=== PATIENT | female | born 1995 | race Hispanic/Latino ===

== ENCOUNTER 2017-12-18 13:58 | Emergency (ER) | payer OTHER ==
[~2017-12-18] VITALS: Ht 154.9 cm; Wt 73.0 kg
[~2017-12-18 13:58] MED LIST: SKELAXIN800 M1 PO
[2017-12-18 14:04] VITALS: BP 100/63
[2017-12-18] MEDS ORDERED: LIDOCAINE HCL V15 ML PO (14:19)
[2017-12-18] MEDS ORDERED: PREDNISONE50 M1 PO (14:19)
--- NOTE | 2017-12-18 14:19 | ED THROAT/DENTAL COMPLAINT ---
History of Present Illness General Chief Complaint: Sore Throat, Dental Pain Stated Complaint: DX'D WITH TONSILLITIS THURSDAY, GETTING WORSE Source: patient Exam Limitations: no limitations Vital Signs & Intake/Output Vital Signs & Intake/Output Vital Signs Date Time Temp Pulse Resp B/P B/P Pulse O2 O2 Flow FiO2 Mean Ox Delivery Rate 12/18 1416 Room Air 12/18 1404 98.4 68 20 100/63 98 Room Air Allergies Coded Allergies: No Known Allergies (02/08/16) Reconcile Medications Ibuprofen 600 MG TABLET 1 TAB PO Q6-PRN PRN PAIN (Reported) Lidocaine HCl (Lidocaine HCl Viscous) 2 % SOLUTION 15 ML PO 4 TIMES/DAY THROAT PAIN MAGIC MOUTH WASH 9MAALOX, LIDOCAINE, BENADRYL EQUAL PARTS) Penicillin V Potassium 500 MG TABLET 1 TAB PO TID ANTIBIOTIC, INFECTION ( Reported) Prednisone 50 MG TABLET 1 TAB PO DAILY PHARYNGITIS Triage Note: PT STATES SHE WAS DX WITH TONSILLITIS ON THURSDAY AND IT HAS BEEN GETTING WORSE DESPITE THE PCN Triage Nurses Notes Reviewed? yes Onset: Abrupt Duration: day(s): (6), constant Timing: recent history Injury Environment: home No Modifying Factors: none : No Patient currently breastfeeds: No HPI: 22-year-old female comes into the emergency room for further evaluation of sore throat. Symptoms began going on for the past 6 days. Patient was seen at [facility] the other day and prescribed penicillin. She reports that she has increased pain and swelling. Denies any vomiting. Some associated fevers. Comes in for further evaluation. Past History Travel History Traveled to [place] past 21 day No Medical History Any Pertinent Medical History? none Neurological: NONE EENT: NONE Cardiovascular: NONE Respiratory: NONE Gastrointestinal: NONE Hepatic: NONE Renal: NONE Musculoskeletal: NONE Psychiatric: NONE Endocrine: NONE Blood Disorders: NONE Cancer(s): NONE Surgical History Surgical History: N Psychosocial History What is your primary language Cypriot Tobacco Use: Current Daily Use Daily Tobacco Use Amount/Type: => 5 Cigarettes daily ETOH Use: occasional use Illicit Drug Use: denies illicit drug use Family History Hx Contributory? No Review of Systems Review of Systems Constitutional: Reports: no symptoms. EENTM: Reports: see HPI. Respiratory: Reports: no symptoms. Cardiovascular: Reports: no symptoms. GI: Reports: no symptoms. Genitourinary: Reports: no symptoms. Musculoskeletal: Reports: no symptoms. Skin: Reports: no symptoms. Neurological/Psychological: Reports: no symptoms. Hematologic/Endocrine: Reports: no symptoms. Immunologic/Allergic: Reports: no symptoms. All Other Systems: Reviewed and Negative Physical Exam Physical Exam General Appearance: well developed/nourished, alert, awake Eyes: Bilateral: normal appearance. Nose: normal inspection Mouth/Throat: tonsillar exudate, tonsillar swelling, pharyngeal erythema Neck: submandibular lymphadenopathy Cardiovascular/Respiratory: no respiratory distress Back: normal inspection Neurologic/Psych: awake, alert, oriented x 3 Skin: intact, normal color Core Measures ACS in differential dx? No Sepsis Present: No Sepsis Focused Exam Completed? No Progress Differential Diagnosis: aspirated tooth, carious tooth, epiglottitis, Ludwigs angina, meningitis, odontogenic abscess, almita-tonsillar abscess, pharyngeal for. body, stomatitis/gingivitis, strep pharyngitis Plan of Care: Orders Procedure Date/time Status THROAT CULTURE W/QUICK STREP 12/18 4208 Active Comments: 12/18/2017 3:55:17 PM Patient clinically looks well. In no apparent distress. No evidence of peritonsillar abscess. Return if any other concerns. Continue penicillin. Started on prednisone and Magic mouthwash for supportive care. Departure Departure Disposition: HOME OR SELF CARE Condition: Stable Clinical Impression Primary Impression: Pharyngitis Secondary Impressions: Tonsillitis Referrals: [facility] Patient Has No Primary Care Dr (PCP/Family) Additional Instructions: Take prednisone and Magic mouthwash as prescribed. Follow-up with ear nose and throat doctor if not better on Thursday. Return if any concerns worsening symptoms. Please go over all results of today's visit with your primary care doctor. Contact your primary care doctor to let them know you were here in the emergency room. There may be nonspecific findings which may not be related to your visit today here in the emergency room but may require further evaluation and chronic monitoring by your primary care doctor. If you had a laceration today the chance of foreign body always remains. You should follow-up with your primary care doctor for recheck in 3-5 days for a wound check. If you had an x-ray done there is a chance that a fracture could have been missed on initial read and you should follow-up with your primary care doctor for repeat x-rays if symptoms persist. If your blood pressure was elevated here in the emergency room please have rechecked by [facility] primary care doctor within the next 48. If you were prescribed a narcotic here in the emergency room or any type of controlled substances you're not allowed to drive while taking this medication or operate any type of heavy machinery. Narcotics can make you feel lightheaded dizziness nausea and can cause constipation. You may need to garbage pick up worker a stool softener. Thank you for choosing [facility] emergency room. Please return to the emergency room immediately if you have any other concerns worsening of symptoms. Departure Forms: Customer Survey General Discharge Information Prescriptions: Current Visit Scripts Prednisone 1 TAB PO DAILY #5 TAB Lidocaine HCl (Lidocaine HCl Viscous) 15 ML PO 4 TIMES/DAY #100 ML MAGIC MOUTH WASH 9MAALOX, LIDOCAINE, BENADRYL EQUAL PARTS)
[2017-12-18] MEDS ORDERED: PENICILLIN V P500 M1 PO (14:20)
[2017-12-18] MEDS ORDERED: IBUPROFEN600 M1 PO (14:20)
== END 2017-12-18 14:55 ==
LOC: ERH 13:58
DX: J02.9 Acute pharyngitis, unspecified (principal); J03.90 Acute tonsillitis, unspecified; Z72.0 Tobacco use